=== PATIENT | male | born 1955 ===

== ENCOUNTER 2023-10-19 11:12 | Emergency (ER) | payer MEDICARE, SELFPAY ==
[2023-10-19 11:16] VITALS: BP 170/82; PULSE 83; RESP 16; TEMP 37; O2SAT 98
[2023-10-19 11:26] VITALS: BP 170/82; PULSE 83; RESP 16; TEMP 37; O2SAT 98
--- NOTE | 2023-10-19 11:47 | W.ED.GENAD ---
Discharge Plan Disposition Patient Disposition: Home Condition: Stable Discharge Details Clinical Impression: Dental infection Primary Care Provider: Nelli Lundy ED Provider: Dianne Romero Home Meds and New Rx's Prescriptions: New clindamycin HCl 150 mg capsule 450 mg PO TID 7 Days Qty: 63 0RF Discharge Instructions Instructions: Dental Abscess (ED) Additional Instructions: Please follow up with your dentist as scheduled for definitive mgmt of your dental infection. Stop taking the amoxicillin. Start taking the clindamycin prescribed for the full course. I encourage you to take a couple of Activia yogurt with each dose to prevent antibiotic associated diarrhea. I advise you to use salt water rinses throughout the day to help reduce the bacterial load in your mouth. Stay well-hydrated, drinking plenty of fluids throughout the day. Return to emergency care if you develop new fever/chills, vision changes, worsening swelling/pain despite treatment, difficulty opening your mouth or swallowing, or if you are very worried and need to be rechecked again immediately HPI General Date/Time Provider Initiated Documentation: 10/19/23 11:21. HPI Narrative: Ronaldo is a 68-year-old male who presents to the emergency department today for evaluation of dental infection. He reports that he started having pain and swelling to the gumline of his right upper back teeth approximately 1 month ago, has been seen by his dentist twice for this. He was initially treated with amoxicillin x 10 days with little improvement. He was started on another course of amoxicillin x 10 days with metronidazole, feels that this combination seems to be working better than just the amoxicillin, but he developed a rash due to the metronidazole and stopped it shortly after starting. He is currently on a third round of amoxicillin, says that it does not seem to be working. He was advised by his dentist to come to the emergency department. He denies fever/chills, vision changes, pus drainage, intraoral swelling. He does have some swelling to the right cheek, says this has been consistent since onset of dental pain, gets worse when the dental pain/infection increases. Denies significant past medical history, says he does not take any medications every day. Denies history of antibiotic resistance. He does not smoke. Related Data Home Medications Medication Instructions Recorded Confirmed clindamycin HCl 150 mg capsule 450 mg (3 x 150 mg) PO TID 7 days 10/19/23 #63 caps Previous Rx's Medication Instructions Recorded clindamycin HCl 150 mg capsule 450 mg (3 x 150 mg) PO TID 7 days 10/19/23 #63 caps Allergies Allergy/AdvReac Type Severity Reaction Status Date / Time metronidazole Allergy Intermediate Skin Rash Verified 10/19/23 11:28 General Stated Complaint: DentalOral TRACY: 4 Review of Systems Narrative: see HPI Exam Const General: cooperative, healthy appearing, comfortable and no acute distress HENAZ Head: normal to inspection Ears: hearing grossly normal bilaterally General nose exam: external nose normal Face and sinus: edema (mild, R cheek) Mouth: oropharynx normal, moist mucous membranes and no trismus Teeth and gingiva: poor dentition Throat: posterior oropharynx normal Eyes General: appearance normal, both eyes and all related structures Pupils: PERRL EOM: EOM intact bilaterally Neck Neck: normal visual inspection, full ROM and no lymphadenopathy Resp Effort & Inspection: normal respiratory effort and able to speak in complete sentences Course Vital Signs Vital signs: Vital Signs Temperature 37.0 C 10/19/23 11:16 Pulse 83 10/19/23 11:16 Respiratory Rate 16 10/19/23 11:16 Blood Pressure 170/82 H 10/19/23 11:16 Pulse Oximetry 98 10/19/23 11:16 Temperature 37.0 C 10/19/23 11:26 Temperature Source Temporal Artery Scan 10/19/23 11:26 Pulse 83 10/19/23 11:26 Respiratory Rate 16 10/19/23 11:26 Respiratory Effort Normal, Non-Labored 10/19/23 11:19 Blood Pressure 170/82 H 10/19/23 11:26 Blood Pressure Position Sitting 10/19/23 11:26 Pulse Oximetry 98 10/19/23 11:26 Oxygen Delivery Method Room Air 10/19/23 11:26 Oxygen Flow Rate 0 10/19/23 11:26 Pain Level 3 10/19/23 11:26 Medical Decision Making Ronaldo is a 68-year-old male who presents to the emergency department today for evaluation of dental infection. He reports that he started having pain and swelling to the gumline of his right upper back teeth approximately 1 month ago, has been seen by his dentist twice for this. He was initially treated with amoxicillin x 10 days with little improvement. He was started on another course of amoxicillin x 10 days with metronidazole, feels that this combination seems to be working better than just the amoxicillin, but he developed a rash due to the metronidazole and stopped it shortly after starting. He is currently on a third round of amoxicillin, says that it does not seem to be working. He was advised by his dentist to come to the emergency department. He denies fever/chills, vision changes, pus drainage, intraoral swelling. He does have some swelling to the right cheek, says this has been consistent since onset of dental pain, gets worse when the dental pain/infection increases. Denies significant past medical history, says he does not take any medications every day. Denies history of antibiotic resistance. He does not smoke. Physical exam remarkable for extensive dental decay, especially to molars/premolars and canine of right upper jaw. Mild swelling noted to gumline. No active pus drainage. Mild tenderness palpation to right cheek. PERRL, EOMs intact. No trismus. No tongue swelling. No cervical lymphadenopathy. Full ROM of neck. History and presentation consistent with dental abscess, likely insufficiently treated due to amoxicillin only antibiotics. No red flags concerning for serious extension of infection requiring imaging or labs at this time. Will treat with clindamycin. Reviewed importance of taking with probiotic to reduce risk of antibiotic associated diarrhea. Reviewed red flags indicate need for return to emergency care. He does have an appoint with dentist to have dental extraction performed on October 31. He is agreeable with plan of care. Quality:[facility] Health Related Social Needs: No Data to Display [facility] All Active Problems (Updated 10/19/23 @ 11:59 by Dianne Chapman) Dental infection (Acute) Nasal bones, closed fracture (Acute) Social History Smoking/Tobacco Use Status: Former Tobacco Use Smoking risk assessment performed?: Yes Alcohol Intake: current Alcohol Intake frequency: holidays/special occasions only Drug use: Never Substance use type: does not use Housing: house
[2023-10-19] MEDS: Clindamycin 150 MG CAP 450 MG PO (12:02)
== END 2023-10-19 12:07 | disposition home or self-care (01) ==
PROVIDERS: Emergency Provider Nurse Practitioner Family; PCP Family Medicine
DX: R68.84 Jaw pain (principal); K04.7 Periapical abscess without sinus
CPT/HCPCS: 99283